=== PATIENT | female | born 1930 | race Caucasian/White ===

== ENCOUNTER → 2016-10-23 | Outpatient (CLI) | payer MEDICARE, OTHER ==
[~2016-10-23] MED LIST: AMLO5TAB2 PO; BISA5TAB4 PO; CYAN10002 IJ; DOCU-27 PO; ENOX40DI SQ; LEVO88TA32 PO; LINE600T PO; MAGN400O4 PO; SENN8.6T11 PO; SIME80TA14 PO; WARF4TAB PO; WARF5TAB PO; [UNRECOGNIZED DRUG - CODE] TP
== END | disposition home or self-care (01) ==
LOC: SPEC 09:25
PROVIDERS: ATTEND Family Medicine
DX: I80.10 Phlebitis and thrombophlebitis of unspecified femoral vein (principal)
CPT/HCPCS: 36415; 85610

== ENCOUNTER → 2016-11-25 | Outpatient (CLI) | payer MEDICARE, OTHER | END | disposition home or self-care (01) | LOC: SPEC 09:30 | PROVIDERS: ATTEND Family Medicine | DX: Z13.6 Encounter for screening for cardiovascular disorders (principal); Z00.00 Encounter for general adult medical examination without abnormal findings | CPT/HCPCS: 80061 ==

== ENCOUNTER → 2016-12-23 | Outpatient (CLI) | payer MEDICARE, OTHER ==
[~2016-12-23] MED LIST changes: +DOCU-109 PO; -DOCU-27 PO; -LEVO88TA32 PO; +LEVO88TA43 PO; -MAGN400O4 PO; +MAGN400O7 PO; +WARF-78 PO; -WARF4TAB PO; +WARF4TAB68 PO; -WARF5TAB PO
[2016-12-23 08:29] LABS: BACTERIA,URINE MOD /HPF (0-FEW); BILIRUBIN,URINE NEG (NEG); CLARITY,URINE HAZY; COLOR,URINE YELLOW; GLUCOSE,URINE NEG (NEG); NITRITE,URINE NEG (NEG); SQUAMOUS EPITHELIAL CELL,UR OCC /LPF; UROBILINOGEN,URINE 0.2 mg/dL (0.2 mg/dL)
== END | disposition home or self-care (01) ==
LOC: SPEC 07:54
PROVIDERS: ATTEND Family Medicine
DX: R35.8 Other polyuria (principal)
CPT/HCPCS: 81001; 87086

== ENCOUNTER → 2017-01-13 | Outpatient (CLI) | payer MEDICARE, OTHER ==
[2017-01-13 08:14] LABS: BASO % 1 % (0-3); EOS # 0.3 x10^3/uL (0.0-0.7); EOS % 6 % (0-3); HEMATOCRIT 35.4 % (36.0-47.0); HEMOGLOBIN 11.7 g/dL (12.0-15.5); LYMPH # 1.2 x10^3/uL (1.0-4.8); LYMPH % 24 % (24-48); MEAN CORPUSCULAR HEMOGLOBIN 28 pg (25-35); MEAN CORPUSCULAR HGB CONC 33 g/dL (31-37); MEAN CORPUSCULAR VOLUME 85 fL (79-100); MONO # 0.4 x10^3/uL (0.0-1.1); MONO % 9 % (0-9); NEUT # 3.1 x10^3uL (1.8-7.7); NEUT % 60 % (31-73); PLATELET COUNT 189 x10^3/uL (140-400); RED BLOOD COUNT 4.16 x10^6/uL (3.50-5.40); RED CELL DISTRIBUTION WIDTH 16.6 % (11.5-14.5); WHITE BLOOD COUNT 5.1 x10^3/uL (4.0-11.0)
[2017-01-13 08:20] LABS: BASO # 0.1 x10^3/uL (0.0-0.2)
[2017-01-13 08:29] LABS: ALBUMIN 3.3 g/dL (3.4-5.0); ALBUMIN/GLOBULIN RATIO 0.9 (1.0-1.7); CALCIUM 8.8 mg/dL (8.5-10.1); GFR 52.4; POTASSIUM 4.7 mmol/L (3.5-5.1); TOTAL BILIRUBIN 0.3 mg/dL (0.2-1.0); TOTAL PROTEIN 7.1 g/dL (6.4-8.2)
== END | disposition home or self-care (01) ==
LOC: SPEC 07:47
PROVIDERS: ATTEND Family Medicine
DX: I48.91 Unspecified atrial fibrillation (principal); E03.9 Hypothyroidism, unspecified
CPT/HCPCS: 36415; 80053; 84443; 85027; 85610

== ENCOUNTER → 2017-03-15 | Outpatient (CLI) | payer MEDICARE, OTHER ==
[2017-03-15 20:39] LABS: BILIRUBIN,URINE NEG (NEG); CLARITY,URINE CLEAR; COLOR,URINE STRAW; GLUCOSE,URINE NEG (NEG)
[2017-03-15 20:40] LABS: BACTERIA,URINE MANY /HPF (0-FEW); NITRITE,URINE NEG (NEG); RBC,URINE OCC /HPF (0-2); SQUAMOUS EPITHELIAL CELL,UR FEW /LPF; UROBILINOGEN,URINE 0.2 mg/dL (0.2 mg/dL)
== END | disposition home or self-care (01) ==
LOC: SPEC 16:52
PROVIDERS: ATTEND Family Medicine
DX: Z00.00 Encounter for general adult medical examination without abnormal findings (principal)
CPT/HCPCS: 81001; 87086

== ENCOUNTER → 2017-04-20 | Outpatient (CLI) | payer MEDICARE, OTHER ==
--- NOTE | 2017-04-20 13:15 | RAD ---
Indication dizziness. Intermittent. Chronic. Noncontrast images of the head were obtained. No prior imaging of the head is available. The calvarium appears unremarkable. The visualized paranasal sinuses appear normal. There is no subdural or epidural hematoma. The ventricles and sulci are normal given the patient's age. There is no mass or midline shift. No hemorrhage is seen. No acute intracranial finding is apparent. IMPRESSION: No acute or significant finding seen on noncontrast CT images of the head PQRS Compliance Statement: One or more of the following individualized dose reduction techniques were utilized for this examination: 1. Automated exposure control 2. Adjustment of the mA and/or kV according to patient size 3. Use of iterative reconstruction technique
--- NOTE | 2017-04-20 16:22 | RAD ---
Renal ultrasound, 04/20/2017: History: Incontinence The right kidney measures 9.8 cm in length while the left kidney measures 10.1 cm. There is no evidence of hydronephrosis or a renal mass. The renal parenchymal echogenicity is within normal limits. Limited views of urinary bladder show no abnormality. The prevoiding volume was 220 cc. The post voiding volume was 7 cc. IMPRESSION: No significant renal abnormality is detected.
== END | disposition home or self-care (01) ==
LOC: CT 12:41
PROVIDERS: ATTEND Family Medicine
DX: N39.46 Mixed incontinence (principal); R42 Dizziness and giddiness; I10 Essential (primary) hypertension
CPT/HCPCS: 70450; 76770

== ENCOUNTER → 2017-04-26 | Outpatient (CLI) | payer MEDICARE, OTHER ==
[2017-04-26 09:54] LABS: ALBUMIN 3.4 g/dL (3.4-5.0); CALCIUM 9.1 mg/dL (8.5-10.1); DIRECT BILIRUBIN 0.1 mg/dL (0.0-0.2); GFR 52.4; POTASSIUM 5.1 mmol/L (3.5-5.1); TOTAL BILIRUBIN 0.3 mg/dL (0.2-1.0); TOTAL PROTEIN 6.7 g/dL (6.4-8.2)
[2017-04-26 10:12] LABS: BASO # 0.1 x10^3/uL (0.0-0.2); BASO % 1 % (0-3); EOS # 0.3 x10^3/uL (0.0-0.7); EOS % 5 % (0-3); HEMATOCRIT 37.2 % (36.0-47.0); HEMOGLOBIN 12.5 g/dL (12.0-15.5); LYMPH # 1.2 x10^3/uL (1.0-4.8); LYMPH % 21 % (24-48); MEAN CORPUSCULAR HEMOGLOBIN 30 pg (25-35); MEAN CORPUSCULAR HGB CONC 34 g/dL (31-37); MEAN CORPUSCULAR VOLUME 89 fL (79-100); MONO # 0.4 x10^3/uL (0.0-1.1); MONO % 8 % (0-9); NEUT # 3.5 x10^3uL (1.8-7.7); NEUT % 65 % (31-73); PLATELET COUNT 175 x10^3/uL (140-400); RED BLOOD COUNT 4.19 x10^6/uL (3.50-5.40); WHITE BLOOD COUNT 5.4 x10^3/uL (4.0-11.0)
== END | disposition home or self-care (01) ==
LOC: SPEC 08:45
PROVIDERS: ATTEND Family Medicine
DX: I48.91 Unspecified atrial fibrillation (principal); I10 Essential (primary) hypertension; E03.9 Hypothyroidism, unspecified
CPT/HCPCS: 36415; 80053; 82248; 85025; 85610

== ENCOUNTER → 2017-05-06 | Outpatient (CLI) | payer MEDICARE, OTHER ==
[2017-05-06 08:40] LABS: BACTERIA,URINE 0 /HPF (0-FEW); BILIRUBIN,URINE NEG (NEG); CLARITY,URINE CLEAR; COLOR,URINE YELLOW; GLUCOSE,URINE NEG (NEG); NITRITE,URINE NEG (NEG); RBC,URINE 0 /HPF (0-2); SQUAMOUS EPITHELIAL CELL,UR OCC /LPF; UROBILINOGEN,URINE 0.2 mg/dL (0.2 mg/dL); WBC,URINE OCC /HPF (0-4)
== END | disposition home or self-care (01) ==
LOC: SPEC 08:05
PROVIDERS: ATTEND Family Medicine
DX: Z00.01 Encounter for general adult medical examination with abnormal findings (principal); R35.0 Frequency of micturition
CPT/HCPCS: 36415; 80061; 81001; 82947; 87086

== ENCOUNTER → 2017-07-18 | Outpatient (CLI) | payer MEDICARE, OTHER ==
[2017-07-18 12:20] LABS: BASO # 0.1 x10^3/uL (0.0-0.2); BASO % 2 % (0-3); EOS # 0.2 x10^3/uL (0.0-0.7); EOS % 4 % (0-3); HEMATOCRIT 39.9 % (36.0-47.0); HEMOGLOBIN 13.4 g/dL (12.0-15.5); LYMPH # 1.1 x10^3/uL (1.0-4.8); LYMPH % 19 % (24-48); MEAN CORPUSCULAR HEMOGLOBIN 31 pg (25-35); MEAN CORPUSCULAR HGB CONC 34 g/dL (31-37); MEAN CORPUSCULAR VOLUME 91 fL (79-100); MONO # 0.5 x10^3/uL (0.0-1.1); MONO % 9 % (0-9); NEUT # 3.7 x10^3uL (1.8-7.7); NEUT % 65 % (31-73); PLATELET COUNT 195 x10^3/uL (140-400); RED BLOOD COUNT 4.37 x10^6/uL (3.50-5.40); RED CELL DISTRIBUTION WIDTH 14.5 % (11.5-14.5); WHITE BLOOD COUNT 5.7 x10^3/uL (4.0-11.0)
[2017-07-18 12:28] LABS: ALBUMIN 3.4 g/dL (3.4-5.0); CREATININE 1.1 mg/dL (0.6-1.0); POTASSIUM 4.4 mmol/L (3.5-5.1); TOTAL BILIRUBIN 0.3 mg/dL (0.2-1.0); TOTAL PROTEIN 6.9 g/dL (6.4-8.2)
== END | disposition home or self-care (01) ==
LOC: SPEC 12:03
PROVIDERS: ATTEND Family Medicine
DX: I48.91 Unspecified atrial fibrillation (principal); E03.9 Hypothyroidism, unspecified
CPT/HCPCS: 36415; 80053; 84443; 85025; 85610

== ENCOUNTER → 2017-08-27 | Outpatient (CLI) | payer MEDICARE, OTHER | END | disposition home or self-care (01) | LOC: SPEC 08:33 | PROVIDERS: ATTEND Family Medicine | DX: E03.9 Hypothyroidism, unspecified (principal); I48.0 Paroxysmal atrial fibrillation | CPT/HCPCS: 36415; 84443; 85610 ==

== ENCOUNTER → 2017-09-29 | Outpatient (CLI) | payer MEDICARE, OTHER ==
--- NOTE | 2017-09-29 17:54 | RAD ---
EXAM: Left lower extremity venous Doppler sonogram. HISTORY: Swelling. TECHNIQUE: Dooley scale and color Doppler sonographic evaluation of the left lower extremity veins with spectral waveform analysis was performed. FINDINGS: There is normal color flow, normal compressibility and there are normal spectral waveforms in the common femoral, superficial femoral, popliteal, posterior tibial and greater saphenous veins. IMPRESSION: No Doppler evidence of lower extremity deep venous thrombosis. Electronically signed by: Elen Cazares MD (09/29/2017 5:51 PM) [facility]
== END | disposition home or self-care (01) ==
LOC: US 16:36
PROVIDERS: ATTEND Family Medicine
DX: M79.605 Pain in left leg (principal); M79.89 Other specified soft tissue disorders
CPT/HCPCS: 93971

== ENCOUNTER → 2017-10-11 | Outpatient (CLI) | payer MEDICARE, OTHER | END | disposition home or self-care (01) | LOC: SPEC 10:15 | PROVIDERS: ATTEND Physician Assistant | DX: I48.91 Unspecified atrial fibrillation (principal) | CPT/HCPCS: 36415; 85610 ==

== ENCOUNTER 2017-10-14 16:50 | Inpatient (IN) | payer MEDICARE, OTHER ==
[~2017-10-14] VITALS: Ht 170.2 cm; Wt 66.4 kg
[2017-10-14] MEDS ORDERED: diphenhydrAMINE 50 MG/ML VIAL IV PRN (17:45)
[2017-10-14] MEDS ORDERED: CALCIUM CARBONATE 500 MG TAB.CHEW PO PRN (17:45)
[2017-10-14] MEDS ORDERED: ELECTROLYTE (NON-ICU) PROTOCOL MC PRN (17:45)
[2017-10-14] MEDS ORDERED: diphenhydrAMINE HCL 25 MG CAPSULE PO PRN (17:45)
[2017-10-14] MEDS ORDERED: PROCHLORPERAZINE 10 MG/2 ML VIAL. IV PRN (17:45)
[2017-10-14] MEDS ORDERED: ACETAMINOPHEN 325 MG TABLET PO PRN (17:45)
[2017-10-14] MEDS ORDERED: ONDANSETRON PF 4 MG/2 ML VIAL. IV PRN (17:45)
[2017-10-14] MEDS ORDERED: PROMETHAZINE 12.5 MG in IV NORMAL SALINE 50ML 50 ML IV PRN (17:45)
[2017-10-14] MEDS ORDERED: 0.9 % SODIUM CHLORIDE 10 ML DISP.SYRIN. IV PRN (17:45)
[2017-10-14] MEDS ORDERED: BENZ-8 PO (17:55)
[2017-10-14] MEDS ORDERED: ASPI-630 PO (17:55)
[2017-10-14] MEDS ORDERED: MIRA25TA PO (17:55)
[2017-10-14] MEDS ORDERED: LOSA50TA2 PO (17:55)
[2017-10-14] MEDS ORDERED: CARV12.5 PO (17:55)
[2017-10-14] MEDS ORDERED: POLY17PO5 PO (17:55)
[2017-10-14] MEDS ORDERED: MELA5CAP PO (17:55)
[2017-10-14] MEDS ORDERED: cefTRIAXone IV Push 1 GM VIAL. IVP SCH (18:00)
--- NOTE | 2017-10-14 18:00 | NUR ---
The patient, SUNIL SANDERS, 87 y/o, F admitted by TONIO BENNETT MD, was given written information regarding hospital policies, unit procedures and contact persons. Valuables were checked and admission assessment performed. MRSA obtained, IV started, labs drawn, pt ambulatory, no complaints at this time. BP elevated, other vitals stable, orders obtained to start IV ABT at 1800. Will CTM.
[2017-10-14 18:11] VITALS: BP 188/72
[2017-10-14 18:20] LABS: BASO # 0.1 x10^3/uL (0.0-0.2); BASO % 3 % (0-3); EOS # 0.4 x10^3/uL (0.0-0.7); EOS % 9 % (0-3); HEMATOCRIT 39.9 % (36.0-47.0); HEMOGLOBIN 13.3 g/dL (12.0-15.5); LYMPH # 1.1 x10^3/uL (1.0-4.8); LYMPH % 23 % (24-48); MEAN CORPUSCULAR HEMOGLOBIN 30 pg (25-35); MEAN CORPUSCULAR HGB CONC 33 g/dL (31-37); MEAN CORPUSCULAR VOLUME 90 fL (79-100); MONO # 0.6 x10^3/uL (0.0-1.1); MONO % 12 % (0-9); NEUT # 2.5 x10^3uL (1.8-7.7); NEUT % 54 % (31-73); PLATELET COUNT 185 x10^3/uL (140-400); RED BLOOD COUNT 4.43 x10^6/uL (3.50-5.40); RED CELL DISTRIBUTION WIDTH 13.5 % (11.5-14.5); WHITE BLOOD COUNT 4.7 x10^3/uL (4.0-11.0)
[2017-10-14] MEDS ORDERED: BENZONATATE 100 MG CAPSULE. PO PRN (18:30)
[2017-10-14] MEDS ORDERED: SIMETHICONE 80 MG TAB.CHEW PO PRN (18:30)
[2017-10-14 18:34] LABS: ALBUMIN 3.6 g/dL (3.4-5.0); ALBUMIN/GLOBULIN RATIO 0.9 (1.0-1.7); CALCIUM 9.3 mg/dL (8.5-10.1); CREATININE 0.8 mg/dL (0.6-1.0); GFR 67.7; TOTAL BILIRUBIN 0.3 mg/dL (0.2-1.0); TOTAL PROTEIN 7.8 g/dL (6.4-8.2)
[2017-10-14 18:50] LABS: POTASSIUM 4.3 mmol/L (3.5-5.1)
[2017-10-14 19:07] VITALS: BP 173/59
[2017-10-14] MEDS ORDERED: WARFARIN 1 MG TABLET. PO SCH (20:00)
[2017-10-14] MEDS ORDERED: WARFARIN 2.5 MG TABLET. PO SCH (20:00)
--- NOTE | 2017-10-14 20:01 | NUR ---
Pharmacy Warfarin Dosing Note S:Pharmacy consulted to assist with anticoagulation therapy started with target INR: 2 -3 O:SUNIL SANDERS is a 87 year old F with Atrial Fibrillation LABS: Last INR: 2.8 Last HGB: 13.3 Last HCT: 39.9 Last PLT: 185 Last dose of 3.5mg given on 10/13/17 at Previous Regimen: 3.5mg Daily Vitamin K given: Drug Interaction Changes: Ongoing Drug Interactions: A:INR Within desired Range. Target Range for this patient is: 2 -3 P: Warfarin dose: 3.5mg Now Bridge Therapy: None Next INR due 10/15/2017 Pharmacy anticoagulation service will continue to follow. SARAH MCKEON, 10/14/172000
[2017-10-14] MEDS: LACTOBACILLUS RHAMNOSUS GG 1 CAPSULE. PO SCH (20:40)
[2017-10-14] MEDS: MIRABEGRON 25 MG TAB.ER.24H PO SCH (20:40)
[2017-10-14] MEDS: CARVEDILOL 12.5 MG TABLET PO SCH (20:40)
[2017-10-14] MEDS: DOCUSATE SODIUM 100 MG CAPSULE PO SCH (20:41)
[2017-10-14] MEDS: LOSARTAN 50 MG TABLET. PO SCH (20:41)
[2017-10-14] MEDS: MELATONIN 3 MG TABLET PO SCH (20:42)
[2017-10-14 22:56] VITALS: BP 116/52
[2017-10-15] MEDS: LEVOTHYROXINE 100 MCG TABLET PO SCH (05:41)
[2017-10-15 05:57] VITALS: BP 168/72
[2017-10-15 06:35] LABS: BASO # 0.1 x10^3/uL (0.0-0.2); BASO % 2 % (0-3); EOS # 0.4 x10^3/uL (0.0-0.7); EOS % 12 % (0-3); HEMATOCRIT 36.7 % (36.0-47.0); HEMOGLOBIN 12.1 g/dL (12.0-15.5); LYMPH # 0.9 x10^3/uL (1.0-4.8); LYMPH % 28 % (24-48); MEAN CORPUSCULAR HEMOGLOBIN 30 pg (25-35); MEAN CORPUSCULAR HGB CONC 33 g/dL (31-37); MEAN CORPUSCULAR VOLUME 90 fL (79-100); MONO # 0.5 x10^3/uL (0.0-1.1); MONO % 17 % (0-9); NEUT # 1.2 x10^3uL (1.8-7.7); NEUT % 40 % (31-73); PLATELET COUNT 152 x10^3/uL (140-400); RED BLOOD COUNT 4.07 x10^6/uL (3.50-5.40); RED CELL DISTRIBUTION WIDTH 13.3 % (11.5-14.5); WHITE BLOOD COUNT 3.1 x10^3/uL (4.0-11.0)
[2017-10-15 06:40] LABS: CALCIUM 8.6 mg/dL (8.5-10.1); CREATININE 0.9 mg/dL (0.6-1.0); GFR 59.1; POTASSIUM 4.3 mmol/L (3.5-5.1)
[2017-10-15] MEDS: LACTOBACILLUS RHAMNOSUS GG 1 CAPSULE. PO SCH ×2 (08:40→20:45)
[2017-10-15] MEDS: POLYETHYLENE GLYCOL 3350 17 GM PACKET. PO SCH (08:40)
[2017-10-15] MEDS: ASPIRIN 81 MG TAB.CHEW PO SCH (08:40)
[2017-10-15] MEDS: DOCUSATE SODIUM 100 MG CAPSULE PO SCH ×2 (08:40→20:46)
[2017-10-15] MEDS: CARVEDILOL 12.5 MG TABLET PO SCH ×2 (08:42→20:45)
[2017-10-15] MEDS: LOSARTAN 50 MG TABLET. PO SCH ×2 (08:42→20:46)
[2017-10-15] MEDS: amLODIPine BESYLATE 5 MG TABLET PO SCH (08:42)
[2017-10-15] MEDS: FLUCONAZOLE 100 MG TABLET. PO SCH (10:27)
[2017-10-15 11:56] VITALS: BP 143/73
--- NOTE | 2017-10-15 14:23 | HP ---
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 She presented with a few day history of worsening right and left leg swelling and redness. The patient worked on [place], [place] from [id number] and this is when this problem started. The physician there told her it was from her athlete's feet. Noticed, the legs started to feel bad starting 09/23/[address] to [place]. PAST MEDICAL HISTORY: Hypertension, DVT, sarcoidosis, constipation, peptic ulcer disease. PAST SURGICAL HISTORY: Tonsillectomy, thyroid biopsy, lung biopsy, spinal fusion, vocal cord surgery. FAMILY HISTORY: Positive for coronary artery disease, diabetes, and endometrial cancer. SOCIAL HISTORY: Rare alcohol. Never smoked. 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 REVIEW OF SYSTEMS: Negative for dysuria or hematuria, fever, headache, sore throat, constipation. 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 OBJECTIVE: VITAL SIGNS: Blood pressure is 143/73, pulse 73, respirations 18, pulse ox 95% on room air, temperature 98. GENERAL: Pleasant elderly female, in no acute distress. HEENT: Hearing normal. Eyes were clear. Nose was patent. Her throat was clear. On her tongue, she does have several polyps. LUNGS: Clear to auscultation. CARDIOVASCULAR: Regular rhythm and rate. She has a 2/6 murmur heard in the pulmonic area. ABDOMEN: Soft, nontender. EXTREMITIES: Left leg all the way up to the mid inner thigh erythematous with petechiae and swelling, feet has dry skin. No obvious athlete's feet, right leg erythematous to a lesser degree than left, still mildly swollen and dry skin on the feet. LABORATORY DATA: Reviewed. ASSESSMENT: 1. Cellulitis of bilateral lower extremities. 2. Hypertension. 3. History of deep venous thrombosis. 4. Long-term use of anticoagulants. Current INR is 2.9. PLAN: IV antibiotics, monitor her INR and we will treat her with 3 days of Diflucan as well. MARYCHUY CORDON DO DR: JONNIE/farheen JOB#: [id number] / [id number]
[2017-10-15 15:39] VITALS: BP 120/58
[2017-10-15 19:22] VITALS: BP 131/59
[2017-10-15] MEDS: MELATONIN 3 MG TABLET PO SCH (20:45)
[2017-10-15] MEDS: MIRABEGRON 25 MG TAB.ER.24H PO SCH (20:46)
--- NOTE | 2017-10-16 01:00 | NUR ---
Nursing: Pt transferred from ICU to [address] [place] [address], room 113 due to need for status bed. Pt ambulated independently to unit, steady gait noted. All belongings with patient. Bedside report received from TRANG Ayala. Pt oriented to unit and room, V/U. Denies any c/o. Call light within reach. Will monitor.
[2017-10-16] MEDS: LEVOTHYROXINE 100 MCG TABLET PO SCH (06:04)
[2017-10-16 06:07] VITALS: BP 154/82
[2017-10-16 07:14] LABS: BASO # 0.1 x10^3/uL (0.0-0.2); BASO % 2 % (0-3); EOS # 0.4 x10^3/uL (0.0-0.7); EOS % 11 % (0-3); HEMATOCRIT 37.1 % (36.0-47.0); HEMOGLOBIN 12.3 g/dL (12.0-15.5); LYMPH # 0.9 x10^3/uL (1.0-4.8); LYMPH % 29 % (24-48); MEAN CORPUSCULAR HEMOGLOBIN 30 pg (25-35); MEAN CORPUSCULAR HGB CONC 33 g/dL (31-37); MEAN CORPUSCULAR VOLUME 90 fL (79-100); MONO # 0.5 x10^3/uL (0.0-1.1); MONO % 14 % (0-9); NEUT # 1.4 x10^3uL (1.8-7.7); NEUT % 43 % (31-73); PLATELET COUNT 153 x10^3/uL (140-400); RED BLOOD COUNT 4.13 x10^6/uL (3.50-5.40); RED CELL DISTRIBUTION WIDTH 13.6 % (11.5-14.5); WHITE BLOOD COUNT 3.2 x10^3/uL (4.0-11.0)
[2017-10-16 07:23] LABS: ALBUMIN 2.8 g/dL (3.4-5.0); ALBUMIN/GLOBULIN RATIO 0.8 (1.0-1.7); CALCIUM 8.7 mg/dL (8.5-10.1); CREATININE 1.1 mg/dL (0.6-1.0); GFR 46.9; MAGNESIUM 1.9 mg/dL (1.8-2.4); POTASSIUM 4.3 mmol/L (3.5-5.1); TOTAL BILIRUBIN 0.3 mg/dL (0.2-1.0); TOTAL PROTEIN 6.2 g/dL (6.4-8.2)
[2017-10-16] MEDS: POLYETHYLENE GLYCOL 3350 17 GM PACKET. PO SCH (09:35)
[2017-10-16] MEDS: FLUCONAZOLE 100 MG TABLET. PO SCH (09:36)
[2017-10-16] MEDS: ASPIRIN 81 MG TAB.CHEW PO SCH (09:36)
[2017-10-16] MEDS: DOCUSATE SODIUM 100 MG CAPSULE PO SCH ×2 (09:36→20:28)
[2017-10-16] MEDS: LACTOBACILLUS RHAMNOSUS GG 1 CAPSULE. PO SCH ×2 (09:36→20:28)
[2017-10-16] MEDS: amLODIPine BESYLATE 5 MG TABLET PO SCH (09:36)
[2017-10-16] MEDS: LOSARTAN 50 MG TABLET. PO SCH ×2 (09:37→20:29)
[2017-10-16] MEDS: CARVEDILOL 12.5 MG TABLET PO SCH ×2 (09:37→20:28)
[2017-10-16 11:18] VITALS: BP 147/76
--- NOTE | 2017-10-16 13:26 | NUR ---
Pharmacy Warfarin Dosing Note S:Pharmacy consulted to assist with anticoagulation therapy started with target INR: 2 -3 O:SUNIL SANDERS is a 87 year old F with Atrial Fibrillation LABS: Last INR: 2.7 Last HGB: 12.3 Last HCT: 37.1 Last PLT: 153 Previous Regimen: Coumadin 3.5mg Daily Vitamin K given: no Drug Interaction Changes: New Interacting Drug--FLUCONAZOLE A:INR is within the desired range. Target Range for this patient is: 2 -3 P: Warfarin dose: Coumadin 3mg po today at 1600 Bridge Therapy: None Next INR due 10/17/17 Pharmacy anticoagulation service will continue to follow. PADDY ROSENTHAL, [facility] 10/16/17 [id number]
[2017-10-16 16:00] VITALS: BP 145/74
[2017-10-16] MEDS ORDERED: WARFARIN 3 MG TABLET. PO ONE (16:00)
--- NOTE | 2017-10-16 19:23 | PN ---
DATE: 10/16/2017 CURRENT PROBLEMS: 1. Cellulitis of bilateral lower extremities. 2. Hypertension. 3. History of deep venous thrombosis. 4. Long-term use of anticoagulants. 5. Artificial heart valve, unknown type. SUBJECTIVE: The patient is doing much better today. Legs are getting better very fast on the antibiotics and anticipate she could probably be discharged tomorrow, in very good spirits. OBJECTIVE: VITAL SIGNS: Blood pressure 147/76, pulse 56, temperature 97.6, respirations 16, and pulse ox 97% on room air. HEENT: Tongue is moist. LUNGS: Clear. CARDIOVASCULAR: Regular rhythm and rate, 2/6 systolic murmur heard best at the pulmonic area. ABDOMEN: Soft, nontender. EXTREMITIES: Marked decrease in redness, warmth and swelling in both legs. LABORATORY DATA: INR is 2.7. MRSA is negative. Slight bump in the creatinine today of 1.1. Albumin is 2.8. PLAN: Start planning for discharge. MARYCHUY CORDON DO DR: JONNIE/farheen JOB#: [id number] / [id number]
[2017-10-16 19:24] VITALS: BP 169/77
[2017-10-16] MEDS: MELATONIN 3 MG TABLET PO SCH (20:28)
[2017-10-16] MEDS: MIRABEGRON 25 MG TAB.ER.24H PO SCH (20:28)
[2017-10-16 23:07] VITALS: BP_SYST 122; BP_SYST 129; BP_DIAS 70; BP_DIAS 78
[2017-10-17] MEDS: LEVOTHYROXINE 100 MCG TABLET PO SCH (05:22)
[2017-10-17 05:58] VITALS: BP 134/74
[2017-10-17] MEDS ORDERED: LACT1CAP19 PO (08:24)
[2017-10-17] MEDS ORDERED: CLIN300C3 PO (08:24)
[2017-10-17] MEDS: DOCUSATE SODIUM 100 MG CAPSULE PO SCH (08:49)
[2017-10-17] MEDS: LACTOBACILLUS RHAMNOSUS GG 1 CAPSULE. PO SCH (08:49)
[2017-10-17] MEDS: LOSARTAN 50 MG TABLET. PO SCH (08:50)
[2017-10-17 08:51] VITALS: BP 134/74
[2017-10-17] MEDS: CARVEDILOL 12.5 MG TABLET PO SCH (08:51)
[2017-10-17] MEDS: amLODIPine BESYLATE 5 MG TABLET PO SCH (08:51)
[2017-10-17] MEDS: ASPIRIN 81 MG TAB.CHEW PO SCH (08:52)
[2017-10-17] MEDS: POLYETHYLENE GLYCOL 3350 17 GM PACKET. PO SCH (08:52)
[2017-10-17] MEDS: FLUCONAZOLE 100 MG TABLET. PO SCH (08:52)
[2017-10-17 09:19] LABS: BASO # 0.1 x10^3/uL (0.0-0.2); BASO % 2 % (0-3); EOS # 0.3 x10^3/uL (0.0-0.7); EOS % 10 % (0-3); HEMATOCRIT 40.3 % (36.0-47.0); HEMOGLOBIN 13.3 g/dL (12.0-15.5); LYMPH # 0.7 x10^3/uL (1.0-4.8); LYMPH % 28 % (24-48); MEAN CORPUSCULAR HEMOGLOBIN 30 pg (25-35); MEAN CORPUSCULAR HGB CONC 33 g/dL (31-37); MEAN CORPUSCULAR VOLUME 90 fL (79-100); MONO # 0.3 x10^3/uL (0.0-1.1); MONO % 10 % (0-9); NEUT # 1.3 x10^3uL (1.8-7.7); NEUT % 49 % (31-73); PLATELET COUNT 181 x10^3/uL (140-400); RED BLOOD COUNT 4.49 x10^6/uL (3.50-5.40); RED CELL DISTRIBUTION WIDTH 13.6 % (11.5-14.5); WHITE BLOOD COUNT 2.7 x10^3/uL (4.0-11.0)
[2017-10-17 09:25] LABS: ALBUMIN/GLOBULIN RATIO 0.8 (1.0-1.7); CALCIUM 9.1 mg/dL (8.5-10.1); CREATININE 1.1 mg/dL (0.6-1.0); GFR 46.9; MAGNESIUM 1.9 mg/dL (1.8-2.4); POTASSIUM 4.3 mmol/L (3.5-5.1); TOTAL BILIRUBIN 0.3 mg/dL (0.2-1.0); TOTAL PROTEIN 6.9 g/dL (6.4-8.2)
--- NOTE | 2017-10-17 09:57 | NUR ---
Pharmacy Warfarin Dosing Note S:Pharmacy consulted to assist with anticoagulation therapy started with target INR: 2 -3 O:SUNIL SANDERS is a 87 year old F with Atrial Fibrillation LABS: Last INR: 2.6 Last HGB: 12.3 Last HCT: 37.1 Last PLT: 153 Last dose of 3 mg given on 10/16/17 at Previous Regimen: 3.5mg Daily Vitamin K given: Drug Interaction Changes: New Interacting Drug-DIFLUCAN Ongoing Drug Interactions: A:INR is within the desired range. Will order Coumadin 3mg for today, then she should be able to go back to her home regimen upon discharge. P: Warfarin dose: Coumadin 3mg po today at 1600 Bridge Therapy: None Next INR due as needed. Pharmacy anticoagulation service will continue to follow. PADDY ROSENTHAL RPH 10/17/17 [id number]
--- NOTE | 2017-10-17 11:00 | NUR ---
NSG NOTE; DISCHARGE VERBAL AND WRITTEN DISCHARGE INSTRUCTIONS GIVEN TO PT WITH VERBAL UNDERSTANDING. WRITTEN RX GIVEN TO PT DISCHARGED HOME TO [facility] AT 1050 VIA AMB ACCOMP BY TRANSPORT PERSONNEL
--- NOTE | 2017-10-17 12:54 | DS ---
DATE OF DISCHARGE: 10/17/2017 DISCHARGE DIAGNOSES: 1. 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 2. Hypertension. 3. History of deep venous thrombosis. 4. Long-term use of anticoagulants. 5. Artificial heart valve. HOSPITAL COURSE: The patient was admitted on 10/14/2017 for cellulitis and was started on IV antibiotics. She did very nicely and legs cleared up very well with IV antibiotics. She also received 3 days of Diflucan 100 mg. On 10/17/2017, she was ready for discharge. Her INR was therapeutic throughout. Her antibiotics were linezolid because of her multiple allergies. OBJECTIVE: VITAL SIGNS: Blood pressure 134/74, pulse 59, pulse ox 97% on room air. EXTREMITIES: Her bilateral lower legs with marked improvement of swelling, redness, erythema and tenderness. She still has the petechiae on the lui of the right leg. LABORATORY DATA: Little bit of a drop in the white count to 2.7. Chemistry profile is good. PLAN: Discharge back to [place] on [place]. Also there is a slight bump in her creatinine, this may be also to the linezolid, so put her on Cleocin. Will see Dr. Sparrow this week. MARYCHUY CORDON DO DR: JONNIE/farheen JOB#: [id number] / [id number] TONIO Gonzalez MD
[2017-10-17] MEDS ORDERED: WARFARIN 3 MG TABLET. PO ONE (16:00)
== END 2017-10-17 10:50 | disposition home or self-care (01) | DRG 603 ==
LOC: ICU 17:09 → 1 SOUTH 10-16 00:47
PROVIDERS: ADMIT Family Medicine; ATTEND Family Medicine
DX: L03.115 Cellulitis of right lower limb (principal); D86.9 Sarcoidosis, unspecified; L03.116 Cellulitis of left lower limb; I10 Essential (primary) hypertension; Z79.01 Long term (current) use of anticoagulants; Z80.49 Family history of malignant neoplasm of other genital organs; Z82.49 Family history of ischemic heart disease and other diseases of the circulatory system; Z83.3 Family history of diabetes mellitus; Z86.718 Personal history of other venous thrombosis and embolism; Z87.11 Personal history of peptic ulcer disease; Z95.2 Presence of prosthetic heart valve; Z98.1 Arthrodesis status; Z88.0 Allergy status to penicillin; Z88.8 Allergy status to other drugs, medicaments and biological substances; Z90.49 Acquired absence of other specified parts of digestive tract
CPT/HCPCS: 36415; 80048; 80053; 83605; 83735; 85025; 85610; 87040; 87641; J0696; J2020; J2405; Q0163

== ENCOUNTER → 2017-10-21 | Outpatient (CLI) | payer MEDICARE, OTHER ==
[2017-10-17 08:51] VITALS: BP 134/74
[~2017-10-21] MED LIST changes: +ASPI-630 PO; +BENZ-8 PO; +CARV12.5 PO; +CLIN300C3 PO; +LACT1CAP19 PO; +LOSA50TA2 PO; +MELA5CAP PO; +MIRA25TA PO; +POLY17PO5 PO
[2017-10-21 12:28] LABS: BASO # 0.1 x10^3/uL (0.0-0.2); BASO % 3 % (0-3); EOS # 0.3 x10^3/uL (0.0-0.7); EOS % 8 % (0-3); HEMATOCRIT 37.5 % (36.0-47.0); HEMOGLOBIN 12.5 g/dL (12.0-15.5); LYMPH % 29 % (24-48); MEAN CORPUSCULAR HEMOGLOBIN 30 pg (25-35); MEAN CORPUSCULAR HGB CONC 33 g/dL (31-37); MEAN CORPUSCULAR VOLUME 89 fL (79-100); MONO # 0.5 x10^3/uL (0.0-1.1); MONO % 13 % (0-9); NEUT # 1.7 x10^3uL (1.8-7.7); NEUT % 47 % (31-73); PLATELET COUNT 192 x10^3/uL (140-400); RED BLOOD COUNT 4.19 x10^6/uL (3.50-5.40); RED CELL DISTRIBUTION WIDTH 13.6 % (11.5-14.5); WHITE BLOOD COUNT 3.6 x10^3/uL (4.0-11.0)
[2017-10-21 12:37] LABS: ALBUMIN 3.3 g/dL (3.4-5.0); CALCIUM 9.1 mg/dL (8.5-10.1); CREATININE 0.9 mg/dL (0.6-1.0); GFR 59.1; POTASSIUM 4.7 mmol/L (3.5-5.1); TOTAL BILIRUBIN 0.3 mg/dL (0.2-1.0); TOTAL PROTEIN 6.7 g/dL (6.4-8.2)
== END | disposition home or self-care (01) ==
LOC: SPEC 09:41
PROVIDERS: ATTEND Family Medicine
DX: Z00.00 Encounter for general adult medical examination without abnormal findings (principal); I48.0 Paroxysmal atrial fibrillation; I10 Essential (primary) hypertension; Z79.01 Long term (current) use of anticoagulants
CPT/HCPCS: 36415; 80053; 85025